=== PATIENT | male | born 1975 | race Caucasian/White ===

== ENCOUNTER 2016-05-25 23:26 | Emergency (ER) | payer OTHER ==
[~2016-05-25] VITALS: Ht 185.4 cm; Wt 131.4 kg
[2016-05-25 23:30] VITALS: BP 132/90
[2016-05-26 00:44] LABS: HEMATOCRIT 42.5 % (38.0-50.0); MCH 27.5 PG (29.0-34.0); MCHC 33.9 G/DL (30.0-36.0); MCV 81.3 FL (86-99); PLATELET COUNT 252 K/uL (156-360); RBC DIS.WIDTH-CV 13.4 % (11.8-14.6); RBC DIS.WIDTH-SD 38.7 % (39-53); RED BLOOD COUNT 5.23 M/uL (4.00-5.50); WHITE BLOOD COUNT 8.2 K/uL (4.1-10.2)
[2016-05-26 00:57] LABS: CHLORIDE 103 mEq/L (99-109); POTASSIUM 3.8 mEq/L (3.7-5.4); SODIUM 139 mEq/L (136-147)
[2016-05-26 00:59] LABS: GLUCOSE 141 mg/dL (70-99)
[2016-05-26 01:00] LABS: ANION GAP 11 MEQ/L (2-14)
[2016-05-26 01:01] LABS: TOTAL BILIRUBIN 0.4 mg/dL (0.0-1.0)
[2016-05-26 01:03] LABS: ALKALINE PHOSPHATASE 75 IU/L (3-129); GFR ESTIMATE (CALCULATED) > 59 mL/min/
[2016-05-26 01:04] LABS: UREA NITROGEN (BUN) 12 mg/dL (9-23)
[2016-05-26 01:06] LABS: LIPASE 21 U/L (1.0-51.0)
[2016-05-26 01:31] LABS: ADD MIUA? NO; BILIRUBIN NEGATIVE; BLOOD NEGATIVE; COLOR YELLOW ((YELLOW)); GLUCOSE (STRIP) NEGATIVE; KETONES NEGATIVE; LEUKOCYTES NEGATIVE; NITRITE NEGATIVE; PROTEIN (STRIP) NEGATIVE; UCUL ADDED? NO
== END 2016-05-26 02:50 | disposition left against medical advice (07) ==
LOC: EME 23:26
DX: R10.30 Lower abdominal pain, unspecified (principal); Z53.21 Procedure and treatment not carried out due to patient leaving prior to being seen by health care provider
CPT/HCPCS: 80053; 81003; 83690; 85027